=== PATIENT | female | born 1965 | race Caucasian/White ===

== ENCOUNTER 2017-07-13 15:55 | Emergency (ER) | payer BC ==
[~2017-07-13] VITALS: Ht 172.7 cm; Wt 63.6 kg
[2017-07-13 16:00] VITALS: BP 119/69; PULSE 98; TEMP 98.8
[2017-07-13] MEDS ORDERED: CLARITIN 1010 MG/TAB PO (16:24)
[2017-07-13] MEDS ORDERED: AMOXICILLIN 8751 TAB PO (16:27)
== END 2017-07-13 16:33 | disposition home or self-care (01) ==
LOC: COL.ER 15:55
DX: R59.0 Localized enlarged lymph nodes (principal); Z86.718 Personal history of other venous thrombosis and embolism; Z88.5 Allergy status to narcotic agent; Z90.89 Acquired absence of other organs; Z98.890 Other specified postprocedural states

== ENCOUNTER 2017-10-20 11:59 | Emergency (ER) | payer BC ==
[~2017-10-20] VITALS: Ht 170.2 cm; Wt 65.0 kg
[~2017-10-20 11:59] MED LIST: AMOXICILLIN 8751 TAB PO; CLARITIN 1010 MG/TAB PO
[2017-10-20 12:01] VITALS: TEMP 97.8
[2017-10-20] MEDS ORDERED: CYMBALTA 20MG20 MG PO (12:15)
[2017-10-20 13:38] LABS: BASO % 0.3 % (0.0-2.0); EOS % 0.4 % (0-4.0); GRAN % 82.7 % (42.2-75.2); HEMATOCRIT 37.2 % (37.0-47.0); HEMOGLOBIN 12.7 g/dl (12.5-16.0); LYMPH # 0.8 (1.2-3.4); LYMPH % 10.7 % (20.0-51.0); MEAN CELL VOLUME 89 fl (80.0-100.0); MEAN CORPUSCULAR HEMOGLOBIN 30 pg (27.0-31.0); MEAN CORPUSCULAR HGB CONC 34 g/dl (33.0-37.0); MEAN PLATELET VOLUME 9.7 fl (7.4-10.4); MONO # 0.4 (0.1-0.6); MONO % 5.2 % (1.7-9.3); PLATELET COUNT 202 K/mm3 (130-400); RED BLOOD COUNT 4.19 M/mm3 (4.10-5.30); REDCELL DISTRIBUTION WIDTH-CV 12.2 % (11.5-14.5)
[2017-10-20 13:43] LABS: ALANINE AMINOTRANSFERASE 39 U/L (9-52); ALBUMIN 3.9 gm/dL (3.5-5.0); ALKALINE PHOSPHATASE 95 U/L (50-136); ANION GAP 11 mmol/L (7-16); AST,SGOT 39 U/L (15-37); BILIRUBIN,TOTAL 0.6 mg/dL (0.0-1.0); BLOOD UREA NITROGEN 10 mg/dL (7-17); CALCIUM 9.3 mg/dL (8.4-10.2); CARBON DIOXIDE 28 mmol/L (22-30); CHLORIDE 100 mmol/L (98-107); CREATININE, serum 0.73 mg/dL (0.52-1.25); GLUCOSE 114 mg/dL (74-106); POTASSIUM 3.3 mmol/L (3.4-5.0); SODIUM 139 mmol/L (137-145); TOTAL PROTEIN 7.3 gm/dL (6.4-8.2)
[2017-10-20 13:45] LABS: ALCOHOL(ethanol),MEDICAL < 10 mg/dL
[2017-10-20 14:00] VITALS: BP 141/84; PULSE 81
== END 2017-10-20 14:00 | disposition short-term general hospital (02) ==
LOC: COL.ER 11:59
PROVIDERS: Family Medicine
DX: S32.021A Stable burst fracture of second lumbar vertebra, initial encounter for closed fracture (principal); Z87.891 Personal history of nicotine dependence; W31.89XA Contact with other specified machinery, initial encounter
CPT/HCPCS: J2270; J2405; Q9967

== ENCOUNTER 2017-10-26 16:11 | Inpatient (IN) | payer BC ==
[~2017-10-26] VITALS: Ht 170.2 cm; Wt 68.2 kg
[~2017-10-26 16:11] MED LIST changes: +CYMBALTA 20MG20 MG PO
[2017-10-28] MEDS ORDERED: FLEXERIL 1010 MG/TAB PO (16:12)
[2017-10-28] MEDS ORDERED: ROXICODONE 55 MG/TAB PO (16:13)
[2017-10-28] MEDS ORDERED: MIRALAX PA17 GM/Dose PO (16:15)
[2017-10-28] MEDS ORDERED: SENOKOT S 50 MG1 TAB PO (16:16)
[2017-10-28] MEDS ORDERED: FERROUSAL325 MG PO (16:18)
[2017-10-28] MEDS ORDERED: B-12 PO (16:18)
[2017-10-28] MEDS ORDERED: EPA FISH OIL1 SGL PO (16:19)
[2017-10-28] MEDS ORDERED: CLARITIN 1010 MG/TAB PO (16:20)
[2017-10-28] MEDS ORDERED: MOTRIN 800800 MG/TAB PO (16:20)
[2017-10-28] MEDS ORDERED: ALEVE 220MG220 MG PO (16:21)
[2017-10-28] MEDS ORDERED: VITAMIN D 400400 IU PO (16:32)
[2017-10-28 16:41] VITALS: BP 121/76; PULSE 97; TEMP 97.8
[2017-10-28 17:41] VITALS: BP 121/76; PULSE 97; TEMP 97.8
[2017-10-29 04:36] VITALS: BP 134/79; PULSE 99; TEMP 98
[2017-10-29 16:00] VITALS: BP 136/83; PULSE 99; TEMP 98.2
[2017-10-30 06:00] VITALS: BP 146/75; PULSE 99; TEMP 98.6
[2017-10-30 07:10] LABS: BASO % 0.4 % (0.0-2.0); EOS # 0.3 (0.0-0.7); EOS % 3.2 % (0-4.0); GRAN # 5.1 (1.4-6.5); GRAN % 64.9 % (42.2-75.2); HEMOGLOBIN 11.2 g/dl (12.5-16.0); LYMPH # 1.5 (1.2-3.4); LYMPH % 18.8 % (20.0-51.0); MEAN CELL VOLUME 91 fl (80.0-100.0); MEAN CORPUSCULAR HEMOGLOBIN 30 pg (27.0-31.0); MEAN CORPUSCULAR HGB CONC 33 g/dl (33.0-37.0); MEAN PLATELET VOLUME 9.1 fl (7.4-10.4); MONO # 0.9 (0.1-0.6); MONO % 11.4 % (1.7-9.3); PLATELET COUNT 625 K/mm3 (130-400); RED BLOOD COUNT 3.75 M/mm3 (4.10-5.30); REDCELL DISTRIBUTION WIDTH-CV 12.7 % (11.5-14.5)
[2017-10-30 07:15] LABS: CALCIUM 9.2 mg/dL (8.4-10.2); CREATININE, serum 0.61 mg/dL (0.52-1.25); MAGNESIUM 2.3 mg/dL (1.6-2.3); POTASSIUM 4.7 mmol/L (3.4-5.0)
[2017-10-30 18:18] VITALS: BP 141/72; PULSE 103; TEMP 98.1
[2017-10-31 06:00] VITALS: BP 145/80; PULSE 104; TEMP 98.5
[2017-10-31 18:00] VITALS: BP 112/63; PULSE 94; TEMP 97.7
[2017-11-01 03:30] VITALS: BP 134/80; PULSE 96; TEMP 98.4
[2017-11-01 18:29] VITALS: BP 121/68; PULSE 103; TEMP 98.4
[2017-11-02 03:27] VITALS: BP 127/71; PULSE 102; TEMP 98
[2017-11-02 16:48] VITALS: BP 116/52; PULSE 102; TEMP 98.5
[2017-11-03 06:00] VITALS: BP 150/77; PULSE 92; TEMP 98.2
[2017-11-03 17:28] VITALS: BP 135/72; PULSE 95; TEMP 98.5
[2017-11-04 06:32] VITALS: BP 115/57; PULSE 110; TEMP 98.4
[2017-11-04 18:00] VITALS: BP 122/61; PULSE 107; TEMP 98.4
[2017-11-05 06:35] VITALS: BP 153/81; PULSE 98; TEMP 98.5
[2017-11-05 17:22] VITALS: BP 143/76; PULSE 99; TEMP 98.2
[2017-11-06 06:00] VITALS: BP 135/71; PULSE 92; TEMP 98.6
[2017-11-06] MEDS ORDERED: TYLENOL 325MG325 MG PO (08:30)
[2017-11-06] MEDS ORDERED: ULTRAM 50MG TAB50 MG PO (08:31)
[2017-11-06 16:19] VITALS: BP 133/68; PULSE 99; TEMP 97.9
[2017-11-07 05:25] VITALS: BP 129/74; PULSE 100; TEMP 97.7
== END 2017-11-07 13:30 | disposition home health service (06) | DRG 561 ==
PROVIDERS: Internal Medicine
DX: S32.022D Unstable burst fracture of second lumbar vertebra, subsequent encounter for fracture with routine healing (principal); S82.142D Displaced bicondylar fracture of left tibia, subsequent encounter for closed fracture with routine healing; M79.7 Fibromyalgia; M48.07 Spinal stenosis, lumbosacral region; D64.9 Anemia, unspecified
CPT/HCPCS: 99222-AI; 99232-AI; 99239; J1650

== ENCOUNTER 2018-02-22 08:45 | Outpatient (RCR) | payer BC ==
[~2018-02-22 08:45] MED LIST changes: +ALEVE 220MG220 MG PO; +B-12 PO; +EPA FISH OIL1 SGL PO; +FERROUSAL325 MG PO; +FLEXERIL 1010 MG/TAB PO; +MIRALAX PA17 GM/Dose PO; +MOTRIN 800800 MG/TAB PO; +ROXICODONE 55 MG/TAB PO; +SENOKOT S 50 MG1 TAB PO; +TYLENOL 325MG325 MG PO; +ULTRAM 50MG TAB50 MG PO; +VITAMIN D 400400 IU PO
== END 2018-03-05 | disposition home or self-care (01) ==
LOC: WSPT
DX: S82.142D Displaced bicondylar fracture of left tibia, subsequent encounter for closed fracture with routine healing (principal); S32.021D Stable burst fracture of second lumbar vertebra, subsequent encounter for fracture with routine healing; W28.XXXD Contact with powered lawn mower, subsequent encounter; Z98.1 Arthrodesis status

== ENCOUNTER 2018-03-22 15:16 | Outpatient (RCR) | payer BC | END 2018-06-20 | disposition home or self-care (01) | LOC: WSPT | DX: S82.142D Displaced bicondylar fracture of left tibia, subsequent encounter for closed fracture with routine healing (principal) ==

== ENCOUNTER 2018-08-20 16:15 | Outpatient (RCR) | payer BC | END 2018-08-27 10:45 | disposition home or self-care (01) | LOC: WSPT 16:15 | DX: S32.02 Fracture of second lumbar vertebra (principal); Z98.1 Arthrodesis status ==